=== PATIENT | male | born 1985 | race Two or more races ===

== ENCOUNTER 2021-01-09 14:25 | Emergency (ER) | payer SELFPAY ==
[~2021-01-09] VITALS: Ht 162.6 cm; Wt 73.5 kg
[2021-01-09] MEDS ORDERED: LIDOCAINE 1% Multi-Dose 20 ML VIAL. INJ ONE (15:30)
[2021-01-09] MEDS ORDERED: DIPH,PERTUSS(ACELL),TET VAC/PF 0.5 ML SYRINGE. VAX IM ONE (16:00)
--- NOTE | 2021-01-09 16:11 | PHYS DOC ---
Past Medical History Past Surgical History: Other Additional Past Surgical Histo: right calf General Adult EDM: Chief Complaint: LACERATION/AVULSION HPI: HPI: Patient is a 35 year old male who present to ER due to facial laceration. Patient said he had an accident at work, he was walking through the worksite, actually cut his face against a board with a screw in it. He is not up-to-date on his tetanus status, it happened about an hour ago ,patient denies any other injury Review of Systems: Review of Systems: Constitutional: Denies fever or chills. [] Eyes: Denies change in visual acuity. [] HENT: Denies nasal congestion or sore throat. [] Respiratory: Denies cough or shortness of breath. [] Cardiovascular: Denies chest pain or edema. [] GI: Denies abdominal pain, nausea, vomiting, bloody stools or diarrhea. [] : Denies dysuria. [] Musculoskeletal: Denies back pain or joint pain. [] Integument: Positive facial laceration Neurologic: Denies headache, focal weakness or sensory changes. [] Endocrine: Denies polyuria or polydipsia. [] Lymphatic: Denies swollen glands. [] Psychiatric: Denies depression or anxiety. [] Heart Score: C/O Chest Pain: N/A Risk Factors: Risk Factors: DM, Current or recent (<one month) smoker, HTN, HLP, family history of CAD, obesity. Risk Scores: Score 0 - 3: 2.5% MACE over next 6 weeks - Discharge Home Score 4 - 6: 20.3% MACE over next 6 weeks - Admit for Clinical Observation Score 7 - 10: 72.7% MACE over next 6 weeks - Early Invasive Strategies Current Medications: Current Medications Medications (Trade) Dose Ordered Sig/Del Start Time Stop Time Status Last Admin Dose Admin Diphtheria/ Tetanus/Acell Pertussis (ADACEL TDap SYRINGE) 0.5 ml ONCE ONCE 01/09/21 16:00 01/09/21 16:01 DC Lidocaine HCl (Lidocaine 1% 20ml Vial) 20 ml 1X ONCE 01/09/21 15:30 01/09/21 15:31 DC 01/09/21 15:37 20 ML Allergies: Allergies: Allergies Coded Allergies Type Severity Reaction Last Updated Verified No Known Drug Allergies 01/09/21 No Physical Exam: PE: Constitutional: Well developed, well nourished, no acute distress, non-toxic ap pearance. [] HENT: Normocephalic, atraumatic, bilateral external ears normal, oropharynx moist, no oral exudates, nose normal. [] Eyes: PERRLA, EOMI, conjunctiva normal, no discharge. [] Neck: Normal range of motion, no tenderness, supple, no stridor. [] Cardiovascular:Heart rate regular rhythm, no murmur [] Lungs & Thorax: Bilateral breath sounds clear to auscultation [] Abdomen: Bowel sounds normal, soft, no tenderness, no masses, no pulsatile masses. [] Skin: Warm, dry, no erythema, 3.5 cm deep laceration on left chin area, not through and through into oral mucosa, not crossing [place] border. Back: No tenderness, no CVA tenderness. [] Extremities: No tenderness, no cyanosis, no clubbing, ROM intact, no edema. [] Neurologic: Alert and oriented X 3, normal motor function, normal sensory fun ction, no focal deficits noted. [] Psychologic: Affect normal, judgement normal, mood normal. [] Current Patient Data: Vital Signs: Vital Signs Date Time Temp Pulse Resp B/P (MAP) Pulse Ox O2 Delivery O2 Flow Rate FiO2 01/09/21 15:20 98.7 79 18 119/64 (82) 96 Room Air 98.7 EKG: EKG: [] Radiology/Procedures: Radiology/Procedures: Indication: LEFT SIDE CHIN LACERATION Procedure: The patient was placed in the appropriate position and anesthesia around the LEFT CHIN AREA. The area was then CLEANED WITH SALINE. The laceration was CLOSED WITH 10 SUTURES, 5-0-PROLENE. The wound area was then dressed with GAUZE. Total repaired wound length: 3.5 CM, SINGLE LAYER, INTERRUPTED METHOD. Other Items: TETANUS BOOSTER WAS GIVEN The patient tolerated the procedure WELL. Complications: NONE Course & Med Decision Making: Course & Med Decision Making Pertinent Labs and Imaging studies reviewed. (See chart for details) [] Dragon Disclaimer: Dragon Disclaimer: This electronic medical record was generated, in whole or in part, using a voice recognition dictation system. Departure Departure Impression: Primary Impression: Face lacerations Disposition: HOME / SELF CARE / HOMELESS Condition: STABLE Patient Instructions: Diphtheria, Tetanus, Acellular Pertussis, Poliovirus Vaccine, Facial Laceration Additional Instructions: Follow-up with your doctor or return here in 7 days for sutures removal. GONZALO ARANA DO Jan 09, 2021 16:11
[2021-01-09 16:49] VITALS: BP 133/77
== END 2021-01-09 17:09 | disposition home or self-care (01) ==
LOC: ER 14:25
DX: S01.81XA Laceration without foreign body of other part of head, initial encounter (principal); Y28.8XXA Contact with other sharp object, undetermined intent, initial encounter; Y93.01 Activity, walking, marching and hiking; Y92.69 Other specified industrial and construction area as the place of occurrence of the external cause; Y99.0 Civilian activity done for income or pay
CPT/HCPCS: 12013; 90471; 90715; 99283; J3490